=== PATIENT | female | born 1995 | race Caucasian/White ===

== ENCOUNTER 2024-12-10 23:17 | Emergency (ER) | payer BC ==
[~2024-12-10] VITALS: Ht 175.3 cm; Wt 186.6 kg
[2024-12-10] MEDS ORDERED: APAP325T4 PO (23:40)
[2024-12-11] MEDS: OSELTAMIVIR PHOSPHATE 75 MG CAP PO ONE (02:53)
[2024-12-11] MEDS: KETOROLAC 60MG 2ML VIAL IM ONE (02:53)
[2024-12-11] MEDS ORDERED: ONDA-282 PO (03:42)
[2024-12-11] MEDS ORDERED: OSEL75CA PO (03:42)
[2024-12-11 05:26] VITALS: BP 158/72; TEMP 98.2; O2SAT 91
== END 2024-12-11 05:57 | disposition home or self-care (01) ==
LOC: M ED 23:17
DX: J09.X2 Influenza due to identified novel influenza A virus with other respiratory manifestations (principal); F32.A Depression, unspecified; Z79.1 Long term (current) use of non-steroidal anti-inflammatories (NSAID); Z79.899 Other long term (current) drug therapy
CPT/HCPCS: 71046; 87486; 87581; 87633; 87798; 87880; 96372; 99284; J1885

== ENCOUNTER → 2024-12-19 | Outpatient (REF) | payer BC ==
[~2024-12-19] MED LIST: APAP325T4 PO; ONDA-282 PO; OSEL75CA PO
[2024-12-19 16:46] LABS: HIV 1&2 SCREEN NEGATIVE (NEGATIVE)
[2024-12-19 16:52] LABS: HEPATITIS C VIRUS ABY INDEX 0.05 INDEX (<0.8)
[2024-12-19 17:50] LABS: BASO # 0.1 10^3/uL (0.0-0.2); BASO % 0.6 % (0.0-1.0); EOS # 0.2 10^3/uL (0.0-0.5); EOS % 2.1 % (0.0-3.0); HEMATOCRIT 42.7 % (36.0-47.0); HEMOGLOBIN 13.8 g/dl (12.0-15.5); LYMPH # 3.5 10^3/uL (1.5-5.0); LYMPH % 32.2 % (24.0-44.0); MEAN CORPUSCULAR HEMOGLOBIN 27.9 pg (27.0-33.0); MEAN CORPUSCULAR HGB CONC 32.3 g/dl (32.0-36.5); MEAN CORPUSCULAR VOLUME 86.4 fl (80.0-96.0); MONO # 0.6 10^3/uL (0.0-0.8); MONO % 5.8 % (2.0-8.0); NEUTROPHILS # 6.4 10^3/uL (1.5-8.5); NEUTROPHILS % 58.7 % (36.0-66.0); PLATELET COUNT, AUTOMATED 378 10^3/uL (150-450); RED BLOOD COUNT 4.94 10^6/uL (4.00-5.40); WHITE BLOOD COUNT 10.9 10^3/uL (4.0-10.0)
[2024-12-19 17:58] LABS: ALBUMIN 4.2 G/DL (3.2-5.2); ALKALINE PHOSPHATASE 86 U/L (35-104); ALT/SGPT 139 U/L (7.0-40); AST/SGOT 78 U/L (<34); BILIRUBIN,TOTAL 0.7 MG/DL (0.3-1.2); BLOOD UREA NITROGEN 12 MG/DL (9-23); CALCIUM LEVEL 9.1 MG/DL (8.5-10.1); CARBON DIOXIDE LEVEL 26 MMOL/L (20-31); CHLORIDE LEVEL 103 MMOL/L (98-107); CHOLESTEROL LEVEL 204 MG/DL (<200); CHOLESTEROL RISK RATIO 6.37 (<5); CREATININE FOR GFR 0.58 MG/DL (0.55-1.30); GLOMERULAR FILTRATION RATE > 90.0 (>60); GLUCOSE, FASTING 125 MG/DL (60-100); LDL CHOLESTEROL 129.2 MG/DL (<100); POTASSIUM SERUM 4.5 MMOL/L (3.5-5.1); SODIUM LEVEL 138 MMOL/L (136-145); TOTAL PROTEIN 7.5 G/DL (5.7-8.2); TRIGLYCERIDES LEVEL 214 MG/DL (<150)
[2024-12-19 18:00] LABS: THYROID STIMULATING HORMONE 10.253 uIU/ML (0.55-4.78); VITAMIN B12 LEVEL 599 PG/ML (211-911)
[2024-12-19 18:06] LABS: HEMOGLOBIN A1c 6.2 % (4.0-6.0)
[2024-12-19 18:22] LABS: FOLATE 13.1 NG/ML (>5.4)
== END ==
LOC: M LAB REF 14:23
PROVIDERS: ATTEND Nurse Practitioner Family
DX: R53.83 Other fatigue (principal); E66.01 Morbid (severe) obesity due to excess calories; E03.9 Hypothyroidism, unspecified; Z11.9 Encounter for screening for infectious and parasitic diseases, unspecified

== ENCOUNTER 2025-03-11 19:07 | Emergency (ER) | payer BC, OTHER ==
[~2025-03-11] VITALS: Ht 177.8 cm; Wt 188.2 kg
[2025-03-11] MEDS ORDERED: FEXO-63 PO (19:37)
[2025-03-11] MEDS ORDERED: AMIT25TA19 PO (19:37)
[2025-03-11] MEDS ORDERED: ARIP10TA63 PO (19:37)
[2025-03-11] MEDS ORDERED: LEXA1TAB2 PO (19:37)
[2025-03-11] MEDS ORDERED: HYDR50TA70 PO (19:37)
[2025-03-11] MEDS ORDERED: PRAZ1CAP PO (19:37)
[2025-03-12] MEDS: DERMABOND TOPICAL SKIN ADHESIVE TOP ONE (00:50)
[2025-03-12] MEDS: BOOSTRIX VACCINE (TETANUS/DIPHTH/ACEL. PERTUSSIS) 0.5 ML SYR IM.IMMUN ONE (00:58)
[2025-03-12 01:13] VITALS: BP 134/76; TEMP 98; O2SAT 98
== END 2025-03-12 01:15 | disposition home or self-care (01) ==
LOC: M ED 19:07
DX: S61.217A Laceration without foreign body of left little finger without damage to nail, initial encounter (principal); Y93.G1 Activity, food preparation and clean up; Y92.010 Kitchen of single-family (private) house as the place of occurrence of the external cause; W26.8XXA Contact with other sharp object(s), not elsewhere classified, initial encounter; Y99.9 Unspecified external cause status; F41.9 Anxiety disorder, unspecified; F32.A Depression, unspecified; Z79.899 Other long term (current) drug therapy; Z23 Encounter for immunization

== ENCOUNTER → 2025-03-23 | Outpatient (REF) | payer BC, OTHER ==
[~2025-03-23] MED LIST changes: +AMIT25TA19 PO; +ARIP10TA63 PO; +FEXO-63 PO; +HYDR50TA70 PO; +LEXA1TAB2 PO; +PRAZ1CAP PO
[2025-03-23 18:10] LABS: TOTAL 25(OH) VITAMIN D 27.8 NG/ML (20.0-100.0)
== END ==
LOC: M LAB REF 16:36
PROVIDERS: ATTEND Nurse Practitioner Family
DX: E03.9 Hypothyroidism, unspecified (principal); Z11.9 Encounter for screening for infectious and parasitic diseases, unspecified; E56.9 Vitamin deficiency, unspecified

== ENCOUNTER → 2025-06-08 | Outpatient (CLI) | payer OTHER | LOC: M LAB 12:44 | PROVIDERS: ATTEND Physician Assistant | DX: E03.9 Hypothyroidism, unspecified (principal); E56.9 Vitamin deficiency, unspecified; Z11.9 Encounter for screening for infectious and parasitic diseases, unspecified; Z53.9 Procedure and treatment not carried out, unspecified reason ==

== ENCOUNTER → 2025-06-13 | Outpatient (CLI) | payer OTHER | LOC: M LAB 14:59 | PROVIDERS: ATTEND Nurse Practitioner Family | DX: E03.9 Hypothyroidism, unspecified (principal) ==